=== PATIENT | female | born 1955 | race Caucasian/White ===

== ENCOUNTER 2022-04-09 14:39 | Emergency (ER) | payer OTHER, BC ==
[~2022-04-09] VITALS: Ht 152.4 cm; Wt 77.1 kg
[2022-04-09 15:37] LABS: Basophils # (auto) 0 10 ^3/uL (0-0.2); Basophils % (auto) 0.2 % (0.0-2.0); Eosinophils # (auto) 0 10 ^3/uL (0-0.8); Eosinophils % (auto) 0.3 % (0.0-7.0); Hematocrit 41.9 % (36.0-46.0); Hemoglobin 14.4 g/dL (12.2-16.2); Lymphocytes # (auto) 1.5 10 ^3/uL (0.4-5.4); Lymphocytes % (auto) 16.1 % (10.0-50.0); Mean Corpuscular Hemoglobin 28.9 pg (28.0-32.0); Mean Corpuscular Hgb Conc. 34.3 g/dL (32.0-36.0); Mean Corpuscular Volume 84.1 fL (80.0-100.0); Monocytes # (auto) 0.5 10 ^3/uL (0-1.3); Monocytes % (auto) 5.1 % (0.0-12.0); Neutrophils # (auto) 7.1 10 ^3/uL (1.6-8.6); Neutrophils % (auto) 78.3 % (37.0-80.0); Red Blood Cells 4.99 10^6/uL (4.0-5.20); Red Cell Distribution Width 13.7 % (11.8-14.3); White Blood Cell 9.1 10^3/uL (4.4-10.8)
[2022-04-09 15:50] LABS: Albumin 3.7 g/dL (3.4-5.0); BUN/Creatinine Ratio 15.6; Potassium 3.5 mmol/L (3.5-5.1)
[2022-04-09 15:53] LABS: Bilirubin, Total 0.3 mg/dL (0.2-1.0); Total Protein 7.4 g/dL (6.4-8.2)
[2022-04-09] MEDS ORDERED: PHENSUP38 PR ×3 (17:13→17:34)
[2022-04-09 17:28] VITALS: BP 135/64
== END 2022-04-09 17:30 | disposition home or self-care (01) ==
LOC: ER 14:39
DX: K62.5 Hemorrhage of anus and rectum (principal)
CPT/HCPCS: 36415; 74176; 80053; 83690; 85025; 85652; 93005